=== PATIENT | female | born 1970 | race American Indian/Alaskan Native ===

== ENCOUNTER 2016-02-17 08:38 | Outpatient (CLI) | payer BC ==
--- NOTE | 2016-02-21 08:10 | Vascular Lab Report ---
LOWER EXTREMITY VENOUS DUPLEX: REASON FOR EXAM: Bilateral leg swelling. COMMENTS ON THE RIGHT: All veins visualized are freely compressible without evidence of internal echogenicity. Flow is spontaneous and phasic throughout. Reflux noted at the saphenofemoral junction and greater saphenous vein COMMENTS ON THE LEFT: All veins visualized are freely compressible without evidence of internal echogenicity. Flow is spontaneous and phasic throughout. Reflux noted to the saphenofemoral junction and in the greater saphenous vein IMPRESSION: No evidence of acute or chronic deep venous thrombosis in either lower extremity. Bilateral superficial venous incompetence.
== END 2016-02-17 08:39 | disposition home or self-care (01) ==
LOC: VAS 08:38
PROVIDERS: ATTEND Radiology Diagnostic Radiology
DX: I10 Essential (primary) hypertension (principal); I87.2 Venous insufficiency (chronic) (peripheral)
CPT/HCPCS: 93970

== ENCOUNTER 2016-09-20 12:16 | Outpatient (CLI) | payer BC ==
--- NOTE | 2016-09-21 08:11 | XRay Report ---
XRAY BILATERAL HIPS AND AP PELVIS THREE VIEWS: 09/20/16 12:31:00 CLINICAL: Bilateral hip pain FINDINGS: Right: No fracture or dislocation. Osteoarthritis with superior acetabular eburnation, superior joint space narrowing and small superolateral osteophyte. Normal soft tissues. Left: No fracture or dislocation. Osteoarthritis with superior acetabular eburnation, superior joint space narrowing and small superolateral osteophyte.Normal soft tissues. The pelvic bones are intact.Normal SI joints. IMPRESSION: Mild/moderate bilateral osteoarthritis of the hips, worse on the right than the left
--- NOTE | 2016-09-21 08:13 | XRay Report ---
X-RAY SACROILIAC JOINTS THREE VIEWS: 09/20/16 12:32:00 CLINICAL: Right hip and right leg pain. FINDINGS: Mild bilateral SI joint sclerosis with no erosions. Osteoarthritis of the hips. IMPRESSION: Mild bilateral sacroiliitis with no erosions.
== END 2016-09-20 12:17 | disposition home or self-care (01) ==
LOC: XRAY 12:16
PROVIDERS: ATTEND Physical Medicine & Rehabilitation
DX: M16.0 Bilateral primary osteoarthritis of hip (principal); M46.1 Sacroiliitis, not elsewhere classified; M25.752 Osteophyte, left hip; M25.751 Osteophyte, right hip; I11.0 Hypertensive heart disease with heart failure; I50.9 Heart failure, unspecified; E78.00 Pure hypercholesterolemia, unspecified; E11.9 Type 2 diabetes mellitus without complications; F32.9 Major depressive disorder, single episode, unspecified; F41.9 Anxiety disorder, unspecified
CPT/HCPCS: 72202; 73521